=== PATIENT | female | born 1975 | race Caucasian/White ===

== ENCOUNTER 2016-06-04 23:50 | Emergency (ER) | payer OTHER ==
--- NOTE | 2016-06-05 00:25 | ED NURSING NOTES ---
Clinical Report - Nurses [facility] [address] [place] [address] 06/04/2016 23:53 Patient: LEANNA CARTER TRIAGE Triage time 00:Jun 05 2016. Acuity: LEVEL 5. Chief Complaint: LEFT LOWER TOOTHACHE and JAW PAIN. 00:11 06/05/16. --00:11 Vanessa Clifford R.N. 00:11 06/05/16. BP: 183/99. HR: 85. RR: 18. O2 saturation: 100%. Temp: 98.4 F. Pain level now 810. --00:11 Vanessa Clifford R.N. Weight: 83.4 kg stated. Height/Length: 61 inches Per Patient. BMI: 34.8. --00:04 Vanessa Clifford R.N. Medications None. --00:09 Vanessa Clifford R.N. Medication/allergy information source: the patient. --00:11 Vanessa Clifford R.N. Allergies Red Dye. --00:09 Vanessa Clifford R.N. History Arrived by private vehicle, and accompanied by friend. Historian not patient. Onset. (3 weeks ago). ( had root canal done 3 years ago, tooth cracked 3 weeks ago.). She has had facial pain. No fever, hoarseness, mouth sores, ear pain or sinus pain. No enlarged lymph nodes. She has had a toothache and swelling of the jaw. Treatment MEDICAL RECORD LIBRARIANS TEACHER: None. PAST MEDICAL HX: Immunizations: up-to-date. SOCIAL HX: Former smoker. No alcohol use or drug use. No infectious disease exposure. ABUSE ASSESSMENT: No report of abuse. SELF HARM ASSESSMENT: A self harm assessment was performed. The patient answered "no" to the question "Have you recently felt down, depressed, or hopeless?", "Have you noticed less interest or pleasure in doing things?", "Do you have thoughts of harming or killing yourself?", "Are you here because you tried to hurt yourself?", "Have you ever tried to hurt yourself before today?", "Have you recently had thoughts about harming or killing others?" and "Do you have any dangerous items in your possession?". FALL RISK ASSESSMENT: Fall risk assessment completed. No fall risk identified. NUTRITIONAL RISK ASSESSMENT: The nutritional risk assessment revealed no deficiencies. FUNCTIONAL ASSESSMENT: Functional assessment: no impairments noted. LEARNING NEEDS ASSESSMENT: The learning needs assessment revealed no barriers. SKIN INTEGRITY ASSESSMENT: Skin integrity risk assessment completed. No skin integrity risk identified. --00:11 Vanessa Clifford R.N. PROBLEMS: no known problems. ADDITIONAL SURGERIES: Dental Surgery. --00:10 Vanessa Clifford R.N. Interventions ID band on patient. --00:11 Vanessa Clifford R.N. PHYSICAL ASSESSMENT 00:12 06/05/16. Ambulatory to room. GENERAL / NEURO / PSYCH: Alert. Oriented X 4. Appears in no acute distress. HEENT: Pupils equal, round and reactive to light. Pharynx within normal limits. Voice within normal limits. No nasal discharge. No pharyngeal erythema. Dental tenderness. Dental decay. The mucous membranes are not dry. No mouth ulcerations. No facial swelling or sinus tenderness present. Mucous membranes are pink. RESPIRATORY: Respirations not labored. SKIN: Skin is warm and dry. Normal skin turgor. --00:12 Vanessa Clifford R.N. NURSING PROGRESS NOTES 00:06/05/16. The initial plan of care for this patient includes an assessment with efforts to address the presence of pain. This plan of care was discussed with the patient. Reassurance given. Patient identifiers checked. Call light placed in reach. Side rails up x 1. Bed placed in lowest position. Brakes of bed on. Patient ready for evaluation. --00:12 Vanessa Clifford R.N. 00:25 06/05/2016 Clindamycin PO Capsules 300 mg given. Allergies verified and confirmed 5 rights. --00:25 Vanessa Clifford R.N. 00:25 06/05/2016 Hydrocodone-APAP (Hydrocodone-Acetaminophen) PO 5/325 mg Tablets 1 tab given. Allergies verified, confirmed 5 rights and sedative warning given to the patient. --00:25 Vanessa Clifford R.N. 00:25 06/05/2016 Zofran ODT (Ondansetron) PO Oral Disintegrating Tablets 4 mg given. Allergies verified and confirmed 5 rights. --00:25 Vanessa Clifford R.N. DISPOSITION / DISCHARGE 00:34 06/05/16. Condition at departure: improved and stable. The goals identified in the patient's plan of care were met. No learning barriers present. Discharge instructions provided and reviewed with the patient. Reviewed medication(s) side effects, precautions, dosing and course information. Prescription(s) given to the patient. Reviewed referral to a dentist for followup. Patient verbalized understanding. Written instructions provided in Latvian. The patient was discharged home and accompanied by telesales manager. She left the Emergency Department ambulatory and via private vehicle. Mds Manager driving. FALL RISK ASSESSMENT: Fall risk assessment completed. No fall risk identified. --00:34 Vanessa Clifford R.N. 00:08 06/05/16. BP: 183/99. HR: 85. RR: 18. O2 saturation: 100%. Temp: 98.4 F. Pain level now 8/10. --00:34 Vanessa Clifford R.N. Departure time: 00:34 Jun 05 2016. --00:34 Vanessa Clifford R.N. Locked/Released at 06/05/2016 0:34 by Vanessa Clifford R.N.
--- NOTE | 2016-06-05 00:25 | ED CLINICAL REPORT ---
Clinical Report - Physicians/Mid Levels [facility] [address] [place] [address] 06/04/2016 23:53 Patient: LEANNA CARTER Time Seen: 00:15. Arrived- By private vehicle. Historian- patient. HISTORY OF PRESENT ILLNESS Chief Complaint: DENTAL PAIN. This started about 3 weeks ago and is still present. It was gradual in onset and has been waxing/waning. Pain described as moderate. The patient has had toothache (left lower molar). (had root canal done 3 years ago, tooth cracked 3 weeks ago. She has had facial pain. No fever, hoarseness, mouth sores, ear pain or sinus pain. No enlarged lymph nodes. She has had a toothache and swelling of the jaw). Similar symptoms previously: Recent medical care: Not recently seen/assessed. REVIEW OF SYSTEMS No fever, difficulty breathing, nausea, abdominal pain or difficulty with urination. No headache, skin rash or vomiting. Denies current . PAST HISTORY See nurses notes. Dental disease. Problems: no known problems. Surgeries: Dental surgery. Medications: None. Allergies: Red Dye. SOCIAL HISTORY Former smoker. No alcohol use or drug use. Residence: Recently moved to area from [place], [place]. ADDITIONAL NOTES The nursing notes have been reviewed. PHYSICAL EXAM Vital Signs: 06/05/2016 00:11 BP: 183/99. HR: 85. RR: 18. O2 saturation: 100%. Temp: 98.4 F. Appearance: Alert. Patient in mild distress. Head: Normal external inspection. No facial erythema. Eyes: Conjunctivae and eyelids normal. ENT: Severe, localized dental decay with gingival tenderness, induration and swelling (lower left first premolar and second premolar, lower left first molar and second molar). No gingival fluctuance. Pharynx normal. Lips normal. No trismus present. Uvula midline. Neck: Normal inspection. Trachea midline. No adenopathy. Neck supple. CVS: Normal heart rate and rhythm. Heart sounds normal. Pulses normal. No cardiac murmur. Respiratory: No respiratory distress. Breath sounds normal. Abdomen: Soft and nontender. Skin: Normal skin color. Normal skin turgor. Extremities: Extremities exhibit normal ROM. Extremities nontender. Neuro: Oriented X 3. No motor deficit. LABS, X-RAYS, AND EKG Pulse Oximetry: 06/05/2016 00:11 O2 saturation: 100%. (FIO2 - room air). Interpretation: normal. PROGRESS AND PROCEDURES Course of Care: Hydrocodone/APAP 5 mg PO given. Zofran 4 mg ODT PO given. Clindamycin 300 mg PO given. Nothing evident to I&D now. No systemic symptoms or fever. Patient/family counseled. Disposition: Discharged. Condition: stable and improved. CLINICAL IMPRESSION Periapical dental abscess. No sinus tract or Liam's angina. INSTRUCTIONS Do not work for two days. Rest. Drink plenty of fluids. No alcohol until released. Warnings: Further evaluation is necessary. It is very important to follow up with a physician. SEDATIVE MEDICATION: You were given sedative medication during your visit. Do not drive or operate dangerous machinery. CONTROLLED SUBSTANCE WARNINGS. GENERAL WARNINGS: Return or contact your physician immediately if your condition worsens or changes unexpectedly, if not improving as expected, or if other problems arise. Prescription Medications: Hydrocodone/APAP 5mg / 325mg: take 1-2 orally every 8 hours as needed for pain. Dispense ten (10). No refill. Clindamycin 300 mg: take 1 capsule orally every 6 hours for 7 days. No refills. OTC Medications: Acetaminophen (available over the counter): take according to label instructions. Motrin (available over the counter): take according to label instructions. Follow-up: Follow up with your doctor in about two days. Follow up with a dentist and an oral surgeon PLEASE SEE THE DENTAL REFERRAL LIST in about two days. Call for the next available appointment. (Electronically signed by Ziggy Shafer DO 06/05/2016 15:59)
--- NOTE | 2016-06-05 00:25 | ED ORDER SUMMARY ---
..... Patient: LEANNA CARTER OrderSheet [facility] VisitID: [id number] [address] [place] [address] 40y, F Registration Date/Time: 06/04/2016 ORDER SHEET Weight: 83.4 kg (stated) Allergies: Red Dye GENERAL ORDERS: MEDICATION ORDERS: Clindamycin PO 300 mg (NOW) (00:06/05/2016 [facility]) (0:25 EInderbitzen R.N.) Hydrocodone-APAP PO 5/325 mg (NOW, HIGH ALERT MEDICATION) (00:06/05/2016 [facility]) (0:25 EInderbitzen R.N.) Zofran ODT PO 4 mg (NOW) (00:06/05/2016 [facility]) (0:25 EInderbitzen R.N.) IV FLUIDS: ORDER SHEET NOTES: [Electronically signed by Vanessa Clifford R.N. (00:34 06/05/2016)] [Electronically signed by Ziggy Shafer DO (15:59 06/05/2016)] [Electronically locked/signed by Vanessa Clifford R.N. (00:34 06/05/2016)]
--- NOTE | 2016-06-05 00:25 | ED ORDER SUMMARY ---
..... Patient: LEANNA CARTER OrderSheet [facility] VisitID: [id number] [address] [place] [address] 40y, F Registration Date/Time: 06/04/2016 ORDER SHEET Weight: 83.4 kg (stated) Allergies: Red Dye GENERAL ORDERS: MEDICATION ORDERS: Clindamycin PO 300 mg (NOW) (00:06/05/2016 [facility]) (0:25 EInderbitzen R.N.) Hydrocodone-APAP PO 5/325 mg (NOW, HIGH ALERT MEDICATION) (00:06/05/2016 [facility]) (0:25 EInderbitzen R.N.) Zofran ODT PO 4 mg (NOW) (00:06/05/2016 [facility]) (0:25 EInderbitzen R.N.) IV FLUIDS: ORDER SHEET NOTES: [Electronically signed by Vanessa Clifford R.N. (00:34 06/05/2016)] [Electronically signed by Ziggy Shafer DO (15:59 06/05/2016)] [Electronically locked/signed by Vanessa Clifford R.N. (00:34 06/05/2016)]
--- NOTE | 2016-06-05 00:25 | ED NURSING NOTES ---
Clinical Report - Nurses [facility] [address] [place] [address] 06/04/2016 23:53 Patient: LEANNA CARTER TRIAGE Triage time 00:Jun 05 2016. Acuity: LEVEL 5. Chief Complaint: LEFT LOWER TOOTHACHE and JAW PAIN. 00:11 06/05/16. --00:11 Vanessa Clifford R.N. 00:11 06/05/16. BP: 183/99. HR: 85. RR: 18. O2 saturation: 100%. Temp: 98.4 F. Pain level now 810. --00:11 Vanessa Clifford R.N. Weight: 83.4 kg stated. Height/Length: 61 inches Per Patient. BMI: 34.8. --00:04 Vanessa Clifford R.N. Medications None. --00:09 Vanessa Clifford R.N. Medication/allergy information source: the patient. --00:11 Vanessa Clifford R.N. Allergies Red Dye. --00:09 Vanessa Clifford R.N. History Arrived by private vehicle, and accompanied by friend. Historian not patient. Onset. (3 weeks ago). ( had root canal done 3 years ago, tooth cracked 3 weeks ago.). She has had facial pain. No fever, hoarseness, mouth sores, ear pain or sinus pain. No enlarged lymph nodes. She has had a toothache and swelling of the jaw. Treatment COGNOS ARCHITECT: None. PAST MEDICAL HX: Immunizations: up-to-date. SOCIAL HX: Former smoker. No alcohol use or drug use. No infectious disease exposure. ABUSE ASSESSMENT: No report of abuse. SELF HARM ASSESSMENT: A self harm assessment was performed. The patient answered "no" to the question "Have you recently felt down, depressed, or hopeless?", "Have you noticed less interest or pleasure in doing things?", "Do you have thoughts of harming or killing yourself?", "Are you here because you tried to hurt yourself?", "Have you ever tried to hurt yourself before today?", "Have you recently had thoughts about harming or killing others?" and "Do you have any dangerous items in your possession?". FALL RISK ASSESSMENT: Fall risk assessment completed. No fall risk identified. NUTRITIONAL RISK ASSESSMENT: The nutritional risk assessment revealed no deficiencies. FUNCTIONAL ASSESSMENT: Functional assessment: no impairments noted. LEARNING NEEDS ASSESSMENT: The learning needs assessment revealed no barriers. SKIN INTEGRITY ASSESSMENT: Skin integrity risk assessment completed. No skin integrity risk identified. --00:11 Vanessa Clifford R.N. PROBLEMS: no known problems. ADDITIONAL SURGERIES: Dental Surgery. --00:10 Vanessa Clifford R.N. Interventions ID band on patient. --00:11 Vanessa Clifford R.N. PHYSICAL ASSESSMENT 00:12 06/05/16. Ambulatory to room. GENERAL / NEURO / PSYCH: Alert. Oriented X 4. Appears in no acute distress. HEENT: Pupils equal, round and reactive to light. Pharynx within normal limits. Voice within normal limits. No nasal discharge. No pharyngeal erythema. Dental tenderness. Dental decay. The mucous membranes are not dry. No mouth ulcerations. No facial swelling or sinus tenderness present. Mucous membranes are pink. RESPIRATORY: Respirations not labored. SKIN: Skin is warm and dry. Normal skin turgor. --00:12 Vanessa Clifford R.N. NURSING PROGRESS NOTES 00:06/05/16. The initial plan of care for this patient includes an assessment with efforts to address the presence of pain. This plan of care was discussed with the patient. Reassurance given. Patient identifiers checked. Call light placed in reach. Side rails up x 1. Bed placed in lowest position. Brakes of bed on. Patient ready for evaluation. --00:12 Vanessa Clifford R.N. 00:25 06/05/2016 Clindamycin PO Capsules 300 mg given. Allergies verified and confirmed 5 rights. --00:25 Vanessa Clifford R.N. 00:25 06/05/2016 Hydrocodone-APAP (Hydrocodone-Acetaminophen) PO 5/325 mg Tablets 1 tab given. Allergies verified, confirmed 5 rights and sedative warning given to the patient. --00:25 Vanessa Clifford R.N. 00:25 06/05/2016 Zofran ODT (Ondansetron) PO Oral Disintegrating Tablets 4 mg given. Allergies verified and confirmed 5 rights. --00:25 Vanessa Clifford R.N. DISPOSITION / DISCHARGE 00:34 06/05/16. Condition at departure: improved and stable. The goals identified in the patient's plan of care were met. No learning barriers present. Discharge instructions provided and reviewed with the patient. Reviewed medication(s) side effects, precautions, dosing and course information. Prescription(s) given to the patient. Reviewed referral to a dentist for followup. Patient verbalized understanding. Written instructions provided in Korean. The patient was discharged home and accompanied by crusher assembler. She left the Emergency Department ambulatory and via private vehicle. Machine Try Out Setter driving. FALL RISK ASSESSMENT: Fall risk assessment completed. No fall risk identified. --00:34 Vanessa Clifford R.N. 00:08 06/05/16. BP: 183/99. HR: 85. RR: 18. O2 saturation: 100%. Temp: 98.4 F. Pain level now 8/10. --00:34 Vanessa Clifford R.N. Departure time: 00:34 Jun 05 2016. --00:34 Vanessa Clifford R.N. Locked/Released at 06/05/2016 0:34 by Vanessa Clifford R.N.
--- NOTE | 2016-06-05 15:59 | ED MED RECONCILIATION SUMMARY ---
Patient: LEANNA CARTER Medication Reconciliation Report [facility] VisitID: [id number] [address] [place] [address] 40y, F Registration Date/Time: 06/04/2016 Weight: 83.4 kg Height/Length: 61 in. BMI: 34.8 ALLERGIES: Red Dye The patient's Home Medications are listed below: NONE. The source(s) of the original Home Medication information: patient The following Medications were given to the patient in the Emergency Department: Clindamycin [PO] PO 300 mg, administered: 06/05/2016 12:25:00 AM Hydrocodone-APAP [PO] PO 1 tab, administered: 06/05/2016 12:25:00 AM Zofran ODT [PO] PO 4 mg, administered: 06/05/2016 12:25:00 AM The following Medications were prescribed to the patient: Acetaminophen (available over the counter): take according to label instructions. -- Ziggy Shafer DO Motrin (available over the counter): take according to label instructions. -- Ziggy Shafer DO Hydrocodone/APAP 5mg / 325mg: take 1-2 orally every 8 hours as needed for pain. Dispense ten (10). No refill. -- Ziggy Shafer DO Clindamycin 300 mg: take 1 capsule orally every 6 hours for 7 days. No refills. -- Ziggy Shafer DO
--- NOTE | 2016-06-05 15:59 | ED MED RECONCILIATION SUMMARY ---
Patient: LEANNA CARTER Medication Reconciliation Report [facility] VisitID: [id number] [address] [place] [address] 40y, F Registration Date/Time: 06/04/2016 Weight: 83.4 kg Height/Length: 61 in. BMI: 34.8 ALLERGIES: Red Dye The patient's Home Medications are listed below: NONE. The source(s) of the original Home Medication information: patient The following Medications were given to the patient in the Emergency Department: Clindamycin [PO] PO 300 mg, administered: 06/05/2016 12:25:00 AM Hydrocodone-APAP [PO] PO 1 tab, administered: 06/05/2016 12:25:00 AM Zofran ODT [PO] PO 4 mg, administered: 06/05/2016 12:25:00 AM The following Medications were prescribed to the patient: Acetaminophen (available over the counter): take according to label instructions. -- Ziggy Shafer DO Motrin (available over the counter): take according to label instructions. -- Ziggy Shafer DO Hydrocodone/APAP 5mg / 325mg: take 1-2 orally every 8 hours as needed for pain. Dispense ten (10). No refill. -- Ziggy Shafer DO Clindamycin 300 mg: take 1 capsule orally every 6 hours for 7 days. No refills. -- Ziggy Shafer DO
--- NOTE | 2016-06-05 15:59 | ED DISCHARGE INSTRUCTIONS ---
Patient: LEANNA CARTER General Instructions [facility] VisitID: [id number] [place] [address] 40y, F Registration Date/Time: 06/04/2016 Periapical dental abscess. No sinus tract or Liam's angina. INSTRUCTIONS Do not work for two days. Rest. Drink plenty of fluids. No alcohol until released. Warnings: Further evaluation is necessary. It is very important to follow up with a physician. SEDATIVE MEDICATION: You were given sedative medication during your visit. Do not drive or operate dangerous machinery. CONTROLLED SUBSTANCE WARNINGS. GENERAL WARNINGS: Return or contact your physician immediately if your condition worsens or changes unexpectedly, if not improving as expected, or if other problems arise. Prescription Medications: Hydrocodone/APAP 5mg / 325mg: take 1-2 orally every 8 hours as needed for pain. Dispense ten (10). No refill. Clindamycin 300 mg: take 1 capsule orally every 6 hours for 7 days. No refills. OTC Medications: Acetaminophen (available over the counter): take according to label instructions. Motrin (available over the counter): take according to label instructions. Follow-up: Follow up with your doctor in about two days. Follow up with a dentist and an oral surgeon PLEASE SEE THE DENTAL REFERRAL LIST in about two days. Call for the next available appointment. ADDITIONAL INFORMATION Dental Abscess A dental abscess is an infection of the tooth socket. It often starts with a crack or cavity in the tooth. A pocket of pus forms between the tooth and the bone. The infection causes pain and swelling of the gum, cheek or jaw. The pain is often made worse by drinking hot or cold fluids, or biting on hard foods. Pain may be felt in the facial sinus or in the ear. A severe infection can interfere with swallowing and breathing. In the emergency department or clinic, you will be started on an antibiotic. However, final treatment requires drainage of the pus. This can be done by removing the tooth or performing a root canal. A root canal is done by an oral surgeon and involves drilling an opening in the tooth to drain the pus. After the infection has healed, a crown is placed over the tooth. Home care The following guidelines will help you care for your abscess at home: Avoid hot and cold foods and liquids since your tooth may be sensitive to temperature changes. If your tooth is chipped or cracked, or if there is a large open cavity, applyoil of cloves(available szle-xhh-dheavpw in drug stores) directly to the tooth to reduce pain. Some pharmacies carry an ihht-jxp-uldtxep "toothache kit". This contains oil of cloves and a paste, which can be applied over the exposed tooth to decrease sensitivity. Apply an ice pack (ice cubes in a plastic bag, wrapped in a towel) over the injured area for 20 minutes every 12 hours the first day for pain relief. Continue this 34 times a day until the pain and swelling goes away. You may use acetaminophen or ibuprofen to control pain, unless another medicine was prescribed. If you have chronic liver or kidney disease or ever had a stomach ulcer or GI bleeding, talk with your doctor before using these medicines. An antibiotic will be prescribed. Take it as directed until completed, even if you are feeling better sooner. Follow-up care Follow up as directed with a dentist or oral surgeon. Even though your pain may improve with the treatment given today, only a dentist or oral surgeon can provide full treatment for this problem. When to seek medical care Get prompt medical attention or contact your doctor if any of the following occur: Your face or eyelid becomes swollen or red Pain worsens or spreads to the neck Fever over 100.4F (38.0C) Unusual drowsiness; headache or stiff neck; weakness, or fainting Pus drains from the gum or tooth Difficulty talking, swallowing or breathing Unable to open your mouth wide Dental Cavity A dental cavity is a pit or crater in the enamel surface of the tooth. This exposes the sensitive inner layer of the tooth and causes pain. If untreated, the cavity will get bigger and may cause an infection or abscess in the root of the tooth. An infection in the tooth is a much more serious problem and may require a root canal or removal of the entire tooth. The tooth pain may be made worse by drinking hot or cold fluids. It may spread from the tooth to the ear or jaw on the same side. Home Care: Avoid hot and cold foods, and liquids since your tooth may be sensitive to temperature changes. If your tooth is chipped or cracked, or if there is a large open cavity, apply OIL OF CLOVES (available bbey-rba-eaidkdk in drug stores) directly to the tooth to reduce pain. Some pharmacies carry an uzwa-dkj-bmtuodd "toothache kit." This contains oil of cloves and a paste, which can be applied over the exposed tooth to decrease sensitivity. An ice pack on your jaw over the sore area may help to reduce pain. You may use acetaminophen (Tylenol) or ibuprofen (Motrin, Advil) to control pain, unless another pain medicine was prescribed. [ NOTE: If you have liver disease or ever had a stomach ulcer, talk with your doctor before using these medicines.] If you have signs of an infection, an antibiotic will be given. Take it as directed. Follow-Up with your dentist as directed. Although your pain may go away with the treatment given, only a dentist can fully evaluate and treat this problem to prevent further tooth damage. Get Prompt Medical Attention if any of the following occur: Redness or swelling of the face Pain worsens or spreads to the neck Fever over 100.5 F (38C) Unusual drowsiness; headache or stiff neck; weakness or fainting Pus drains from the tooth or gum Difficulty swallowing or breathing Hydrocodone Bitartrate, Acetaminophen Oral tablet What is this medicine? ACETAMINOPHEN; HYDROCODONE (a set a KIRSTIN raj fen; clover droe KOE done) is a pain reliever. It is used to treat mild to moderate pain. How should I use this medicine? Take this medicine by mouth. Swallow it with a full glass of water. Follow the directions on the prescription label. If the medicine upsets your stomach, take the medicine with food or milk. Do not take more than you are told to take. Talk to your fermentologist regarding the use of this medicine in children. This medicine is not approved for use in children. What side effects may I notice from receiving this medicine? Side effects that you should report to your doctor or health youth care specialist as soon as possible: allergic reactions like skin rash, itching or hives, swelling of the face, lips, or tongue breathing problems confusion feeling faint or lightheaded, falls stomach pain yellowing of the eyes or skin Side effects that usually do not require medical attention (report to your doctor or health youth care specialist if they continue or are bothersome): nausea, vomiting stomach upset What may interact with this medicine? alcohol antihistamines isoniazid medicines for depression, anxiety, or psychotic disturbances medicines for sleep muscle relaxants naltrexone narcotic medicines (opiates) for pain phenobarbital ritonavir tramadol What if I miss a dose? If you miss a dose, take it as soon as you can. If it is almost time for your next dose, take only that dose. Do not take double or extra doses. Where should I keep my medicine? Keep out of the reach of children. This medicine can be abused. Keep your medicine in a safe place to protect it from theft. Do not share this medicine with anyone. Selling or giving away this medicine is dangerous and against the law. Store at room temperature between 15 and 30 degrees C (59 and 86 degrees F). Protect from light. Keep container tightly closed. Throw away any unused medicine after the expiration date. Discard unused medicine and used packaging carefully. Pets and children can be harmed if they find used or lost packages. What should I tell my health care provider before I take this medicine? They need to know if you have any of these conditions: brain tumor Crohn's disease, inflammatory bowel disease, or ulcerative colitis drink more than 3 alcohol-containing drinks per day drug abuse or addiction head injury heart or circulation problems kidney disease or problems going to the bathroom liver disease lung disease, asthma, or breathing problems an unusual or allergic reaction to acetaminophen, hydrocodone, other opioid analgesics, other medicines, foods, dyes, or preservatives or trying to get breast-feeding What should I watch for while using this medicine? Tell your doctor or health youth care specialist if your pain does not go away, if it gets worse, or if you have new or a different type of pain. You may develop tolerance to the medicine. Tolerance means that you will need a higher dose of the medicine for pain relief. Tolerance is normal and is expected if you take the medicine for a long time. Do not suddenly stop taking your medicine because you may develop a severe reaction. Your body becomes used to the medicine. This does NOT mean you are addicted. Addiction is a behavior related to getting and using a drug for a non-medical reason. If you have pain, you have a medical reason to take pain medicine. Your doctor will tell you how much medicine to take. If your doctor wants you to stop the medicine, the dose will be slowly lowered over time to avoid any side effects. You may get drowsy or dizzy when you first start taking the medicine or change doses. Do not drive, use machinery, or do anything that may be dangerous until you know how the medicine affects you. Stand or sit up slowly. There are different types of narcotic medicines (opiates) for pain. If you take more than one type at the same time, you may have more side effects. Give your health care provider a list of all medicines you use. Your doctor will tell you how much medicine to take. Do not take more medicine than directed. Call emergency for help if you have problems breathing. The medicine will cause constipation. Try to have a bowel movement at least every 2 to 3 days. If you do not have a bowel movement for 3 days, call your doctor or health youth care specialist. Too much acetaminophen can be very dangerous. Do not take Tylenol (acetaminophen) or medicines that contain acetaminophen with this medicine. Many non-prescription medicines contain acetaminophen. Always read the labels carefully. Clindamycin Hydrochloride Oral capsule What is this medicine? CLINDAMYCIN (KLIN da NAYELY sin) is a lincosamide antibiotic. It is used to treat certain kinds of bacterial infections. It will not work for colds, flu, or other viral infections. How should I use this medicine? Take this medicine by mouth with a full glass of water. Follow the directions on the prescription label. You can take this medicine with food or on an empty stomach. If the medicine upsets your stomach, take it with food. Take your medicine at regular intervals. Do not take your medicine more often than directed. Take all of your medicine as directed even if you think your are better. Do not skip doses or stop your medicine early. Talk to your fermentologist regarding the use of this medicine in children. Special care may be needed. What side effects may I notice from receiving this medicine? Side effects that you should report to your doctor or health youth care specialist as soon as possible: allergic reactions like skin rash, itching or hives, swelling of the face, lips, or tongue dark urine pain on swallowing redness, blistering, peeling or loosening of the skin, including inside the mouth unusual bleeding or bruising unusually weak or tired yellowing of eyes or skin Side effects that usually do not require medical attention (report to your doctor or health youth care specialist if they continue or are bothersome): diarrhea itching in the rectal or genital area joint pain nausea, vomiting stomach pain What may interact with this medicine? chloramphenicol erythromycin kaolin products What if I miss a dose? If you miss a dose, take it as soon as you can. If it is almost time for your next dose, take only that dose. Do not take double or extra doses. Where should I keep my medicine? Keep out of the reach of children. Store at room temperature between 20 and 25 degrees C (68 and 77 degrees F). Throw away any unused medicine after the expiration date. What should I tell my health care provider before I take this medicine? They need to know if you have any of these conditions: kidney disease liver disease stomach problems like colitis an unusual or allergic reaction to clindamycin, lincomycin, or other medicines, foods, dyes like tartrazine or preservatives or trying to get breast-feeding What should I watch for while using this medicine? Tell your doctor or healthcare professional if your symptoms do not start to get better or if they get worse. Do not treat diarrhea with over the counter products. Contact your doctor if you have diarrhea that lasts more than 2 days or if it is severe and watery. Acetaminophen Oral tablet What is this medicine? ACETAMINOPHEN (a set a KIRSTIN raj fen) is a pain reliever. It is used to treat mild pain and fever. How should I use this medicine? Take this medicine by mouth with a glass of water. Follow the directions on the package or prescription label. Take your medicine at regular intervals. Do not take your medicine more often than directed. Talk to your fermentologist regarding the use of this medicine in children. While this drug may be prescribed for children as young as 6 years of age for selected conditions, precautions do apply. What side effects may I notice from receiving this medicine? Side effects that you should report to your doctor or health youth care specialist as soon as possible: allergic reactions like skin rash, itching or hives, swelling of the face, lips, or tongue breathing problems fever or sore throat redness, blistering, peeling or loosening of the skin, including inside the mouth trouble passing urine or change in the amount of urine unusual bleeding or bruising unusually weak or tired yellowing of the eyes or skin Side effects that usually do not require medical attention (report to your doctor or health youth care specialist if they continue or are bothersome): headache nausea, stomach upset What may interact with this medicine? alcohol imatinib isoniazid other medicines with acetaminophen What if I miss a dose? If you miss a dose, take it as soon as you can. If it is almost time for your next dose, take only that dose. Do not take double or extra doses. Where should I keep my medicine? Keep out of reach of children. Store at room temperature between 20 and 25 degrees C (68 and 77 degrees F). Protect from moisture and heat. Throw away any unused medicine after the expiration date. What should I tell my health care provider before I take this medicine? They need to know if you have any of these conditions: if you frequently drink alcohol containing drinks liver disease an unusual or allergic reaction to acetaminophen, other medicines, foods, dyes or preservatives or trying to get breast-feeding What should I watch for while using this medicine? Tell your doctor or health youth care specialist if the pain lasts more than 10 days (5 days for children), if it gets worse, or if there is a new or different kind of pain. Also, check with your doctor if a fever lasts for more than 3 days. Do not take other medicines that contain acetaminophen with this medicine. Always read labels carefully. If you have questions, ask your doctor or pharmacist. If you take too much acetaminophen get medical help right away. Too much acetaminophen can be very dangerous and cause liver damage. Even if you do not have symptoms, it is important to get help right away. Ibuprofen Oral tablet What is this medicine? IBUPROFEN (eye BYOO proe fen) is a non-steroidal anti-inflammatory drug (NSAID). It is used for dental pain, fever, headaches or migraines, osteoarthritis, rheumatoid arthritis, or painful monthly periods. It can also relieve minor aches and pains caused by a cold, flu, or sore throat. How should I use this medicine? Take this medicine by mouth with a glass of water. Follow the directions on the prescription label. Take this medicine with food if your stomach gets upset. Try to not lie down for at least 10 minutes after you take the medicine. Take your medicine at regular intervals. Do not take your medicine more often than directed. A special MedGuide will be given to you by the pharmacist with each prescription and refill. Be sure to read this information carefully each time. Talk to your fermentologist regarding the use of this medicine in children. Special care may be needed. What side effects may I notice from receiving this medicine? Side effects that you should report to your doctor or health youth care specialist as soon as possible: allergic reactions like skin rash, itching or hives, swelling of the face, lips, or tongue black or bloody stools, blood in the urine or in vomit breathing problems changes in vision chest pain general ill feeling or flu-like symptoms nausea or vomiting redness, blistering, peeling or loosening of the skin, including inside the mouth slurred speech or weakness on one side of the body stomach pain unexplained weight gain or swelling unusually weak or tired yellowing of eyes or skin Side effects that usually do not require medical attention (report to your doctor or health youth care specialist if they continue or are bothersome): constipation or diarrhea dizziness gas or heartburn stomach upset What may interact with this medicine? Do not take this medicine with any of the following medications: cidofovir ketorolac methotrexate pemetrexed This medicine may also interact with the following medications: alcohol aspirin diuretics lithium other drugs for inflammation like prednisone warfarin What if I miss a dose? If you miss a dose, take it as soon as you can. If it is almost time for your next dose, take only that dose. Do not take double or extra doses. Where should I keep my medicine? Keep out of the reach of children. Store at room temperature between 15 and 30 degrees C (59 and 86 degrees F). Keep container tightly closed. Throw away any unused medicine after the expiration date. What should I tell my health care provider before I take this medicine? They need to know if you have any of these conditions: asthma cigarette smoker drink more than 3 alcohol containing drinks a day heart disease or circulation problems such as heart failure or leg edema (fluid retention) high blood pressure kidney disease liver disease stomach bleeding or ulcers an unusual or allergic reaction to ibuprofen, aspirin, other NSAIDS, other medicines, foods, dyes, or preservatives or trying to get breast-feeding What should I watch for while using this medicine? Tell your doctor or healthcare professional if your symptoms do not start to get better or if they get worse. This medicine does not prevent heart attack or stroke. In fact, this medicine may increase the chance of a heart attack or stroke. The chance may increase with longer use of this medicine and in people who have heart disease. If you take aspirin to prevent heart attack or stroke, talk with your doctor or health youth care specialist. Do not take other medicines that contain aspirin, ibuprofen, or naproxen with this medicine. Side effects such as stomach upset, nausea, or ulcers may be more likely to occur. Many medicines available without a prescription should not be taken with this medicine. This medicine can cause ulcers and bleeding in the stomach and intestines at any time during treatment. Ulcers and bleeding can happen without warning symptoms and can cause . To reduce your risk, do not smoke cigarettes or drink alcohol while you are taking this medicine. You may get drowsy or dizzy. Do not drive, use machinery, or do anything that needs mental alertness until you know how this medicine affects you. Do not stand or sit up quickly, especially if you are an older patient. This reduces the risk of dizzy or fainting spells. This medicine can cause you to bleed more easily. Try to avoid damage to your teeth and gums when you brush or floss your teeth. You have been given the following additional information: Tooth Abscess Dental Cavity Hydrocodone Bitartrate, Acetaminophen Oral tablet Clindamycin Hydrochloride Oral capsule Acetaminophen Oral tablet Ibuprofen Oral tablet Do not work for two days. Rest. (Electronically signed by Ziggy Shafer DO 06/05/2016 15:59)
--- NOTE | 2016-06-05 15:59 | ED MAR SUMMARY ---
..... Medication Administration Record [facility] [address] [place] [address] Patient: LEANNA CARTER Visit ID: [id number] 40y, F Weight: 83.4 kg Height/Length: 61 in BMI: 34.8 ALLERGIES: Red Dye Given 00:06/05/2016 Vanessa Clifford R.N. Medication Administered: CLINDAMYCIN [PO], Dose: 300 mg Capsules PO. Medication Ordered: Clindamycin PO 300 mg (NOW). Given :06/05/2016 Vanessa Clifford R.N. Medication Administered: HYDROCODONE-APAP [PO] (HYDROCODONE-ACETAMINOPHEN), Dose: 1 tab 5/325 mg Tablets PO. Medication Ordered: Hydrocodone-APAP PO 5/325 mg (NOW, HIGH ALERT MEDICATION). Given 00:06/05/2016 Vanessa Clifford R.N. Medication Administered: ZOFRAN ODT [PO] (ONDANSETRON), Dose: 4 mg Oral Disintegrating Tablets PO. Medication Ordered: Zofran ODT PO 4 mg (NOW).
--- NOTE | 2016-06-05 15:59 | ED MAR SUMMARY ---
..... Medication Administration Record [facility] [address] [place] [address] Patient: LEANNA CARTER Visit ID: [id number] 40y, F Weight: 83.4 kg Height/Length: 61 in BMI: 34.8 ALLERGIES: Red Dye Given 00:06/05/2016 Vanessa Clifford R.N. Medication Administered: CLINDAMYCIN [PO], Dose: 300 mg Capsules PO. Medication Ordered: Clindamycin PO 300 mg (NOW). Given :06/05/2016 Vanessa Clifford R.N. Medication Administered: HYDROCODONE-APAP [PO] (HYDROCODONE-ACETAMINOPHEN), Dose: 1 tab 5/325 mg Tablets PO. Medication Ordered: Hydrocodone-APAP PO 5/325 mg (NOW, HIGH ALERT MEDICATION). Given 00:06/05/2016 Vanessa Clifford R.N. Medication Administered: ZOFRAN ODT [PO] (ONDANSETRON), Dose: 4 mg Oral Disintegrating Tablets PO. Medication Ordered: Zofran ODT PO 4 mg (NOW).
== END 2016-06-05 00:34 | disposition home or self-care (01) ==
LOC: ED SRH 23:50
DX: K04.7 Periapical abscess without sinus (principal); Z87.891 Personal history of nicotine dependence